=== PATIENT | female | born 1980 | race Caucasian/White ===

== ENCOUNTER → 2018-05-01 | Emergency (ER) | payer OTHER ==
[~2018-05-01] VITALS: Ht 152.4 cm; Wt 86.2 kg
[~2018-05-01] MED LIST: CIPRO500 MG PO; KETO10TA2 PO; LEVAQUIN500 MG; PROTONIX20 MG PO; PYRIDIUM100 MG PO; SYNTHROID200 MCG PO
== END | disposition home or self-care (01) ==
LOC: ER 10:24
DX: K62.5 Hemorrhage of anus and rectum (principal)

== ENCOUNTER 2018-07-11 08:45 | Day surgery (SDC) | payer OTHER | END 2018-07-11 14:10 | disposition home or self-care (01) | LOC: AMB-ENDOS 08:45 | DX: N80.5 Endometriosis of intestine (principal); K64.1 Second degree hemorrhoids ==

== ENCOUNTER 2018-09-27 15:40 | Emergency (ER) | payer OTHER ==
[~2018-09-27] VITALS: Ht 152.4 cm; Wt 86.2 kg
[2018-09-27] MEDS ORDERED: KETO10TA2 (15:54)
[2018-09-27] MEDS ORDERED: KEFLEX500 MG (15:54)
[2018-09-27] MEDS ORDERED: TAMS0.4C (15:54)
== END 2018-09-27 19:15 | disposition home or self-care (01) ==
LOC: ER 15:40
DX: R10.11 Right upper quadrant pain (principal)

== ENCOUNTER 2018-09-30 05:34 | Emergency (ER) | payer OTHER ==
[~2018-09-30] VITALS: Ht 152.4 cm; Wt 86.2 kg
[~2018-09-30 05:34] MED LIST changes: +KEFLEX500 MG; +KETO10TA2; +TAMS0.4C
[2018-09-30] MEDS ORDERED: TORADOL60 MG IM (07:44)
[2018-09-30] MEDS ORDERED: LEVSIN/SL0.125 MG SL (07:44)
[2018-09-30] MEDS ORDERED: PEPCID AC20 MG PO (07:44)
== END 2018-09-30 07:58 | disposition home or self-care (01) ==
LOC: ER 05:34
DX: R10.11 Right upper quadrant pain (principal)

== ENCOUNTER 2018-10-01 08:35 | Outpatient (CLI) | payer OTHER ==
[~2018-10-01 08:35] MED LIST changes: +LEVSIN/SL0.125 MG SL; +PEPCID AC20 MG PO; +TORADOL60 MG IM
== END 2018-10-01 08:45 | disposition home or self-care (01) ==
LOC: NUCLEAR 08:35
DX: R10.9 Unspecified abdominal pain (principal)
CPT/HCPCS: 78227; A9537

== ENCOUNTER 2018-10-30 07:30 | Inpatient (IN) | payer OTHER ==
[~2018-10-30] VITALS: Ht 152.4 cm; Wt 86.2 kg
== END 2018-11-09 13:35 | disposition home or self-care (01) | DRG 330 ==
LOC: ADM 07:30 → EDSTATUS 07:30 → SURH 11-04 07:30 → O/R 11-04 09:38 → SURG 11-04 09:38 → SURH 11-04 15:30 → SURG 11-04 15:33
PROVIDERS: ADMIT Colon & Rectal Surgery
PROC: 0WUF47Z Supplement Abdominal Wall with Autologous Tissue Substitute, Percutaneous Endoscopic Approach (ICD-10-PCS; 2018-11-04)
PROC: 0TQB4ZZ Repair Bladder, Percutaneous Endoscopic Approach (ICD-10-PCS; 2018-11-04)
PROC: 0DJD8ZZ Inspection of Lower Intestinal Tract, Via Natural or Artificial Opening Endoscopic (ICD-10-PCS; 2018-11-04)
PROC: 0DTN4ZZ Resection of Sigmoid Colon, Percutaneous Endoscopic Approach (ICD-10-PCS; principal; 2018-11-04 15:30)
DX: N80.5 Endometriosis of intestine (principal); N32.1 Vesicointestinal fistula; K92.1 Melena; N99.72 Accidental puncture and laceration of a genitourinary system organ or structure during other procedure; I97.89 Other postprocedural complications and disorders of the circulatory system, not elsewhere classified; K64.2 Third degree hemorrhoids; K63.89 Other specified diseases of intestine; E03.8 Other specified hypothyroidism

== ENCOUNTER 2019-06-24 11:02 | Outpatient (CLI) | payer OTHER | END 2019-06-24 11:11 | disposition home or self-care (01) | LOC: LAB 11:02 | DX: N20.0 Calculus of kidney (principal) ==

== ENCOUNTER → 2019-06-26 | Outpatient (CLI) | payer OTHER | END | disposition home or self-care (01) | LOC: TOM 09:00 | DX: N82.3 Fistula of vagina to large intestine (principal) ==

== ENCOUNTER 2019-12-25 09:55 | Day surgery (SDC) | payer OTHER | END 2019-12-25 15:55 | disposition home or self-care (01) | LOC: AMB-ENDOS 09:55 | PROVIDERS: ATTEND Colon & Rectal Surgery | DX: K62.89 Other specified diseases of anus and rectum (principal); N82.3 Fistula of vagina to large intestine; K64.1 Second degree hemorrhoids; Z20.828 Contact with and (suspected) exposure to other viral communicable diseases ==

== ENCOUNTER 2019-12-27 12:46 | Emergency (ER) | payer OTHER ==
[~2019-12-27] VITALS: Ht 152.4 cm; Wt 86.2 kg
[2019-12-27] MEDS ORDERED: SYNTHROID175 MCG (13:22)
== END 2019-12-27 17:27 | disposition home or self-care (01) ==
LOC: ER 12:46
DX: K52.89 Other specified noninfective gastroenteritis and colitis (principal)